=== PATIENT | female | born 1990 | race African-American/Black ===

== ENCOUNTER 2019-11-08 19:36 | Emergency (ER) | payer SELFPAY ==
[2019-11-08] MEDS ORDERED: Ondansetron ODT 4 MG TAB ONE (20:48)
== END 2019-11-08 20:59 | disposition home or self-care (01) ==
LOC: ERS 19:36
DX: R50.9 Fever, unspecified (principal); R11.0 Nausea; F41.9 Anxiety disorder, unspecified; F17.210 Nicotine dependence, cigarettes, uncomplicated
CPT/HCPCS: 87804; 99283; Q0162

== ENCOUNTER 2020-02-09 21:41 | Emergency (ER) | payer SELFPAY ==
[2020-02-09] MEDS ORDERED: Ondansetron ODT 4 MG TAB ONE (23:13)
[2020-02-09] MEDS ORDERED: Lidocaine 1% (PF) 30 ML VIAL ONE (23:13)
[2020-02-09] MEDS ORDERED: Sulfameth/Trimethoprim DS 800-160mg TAB ONE (23:13)
[2020-02-09] MEDS ORDERED: cefTRIAXone\\ROCEPHIN 1 GM VIAL ONE (23:13)
[2020-02-09] MEDS ORDERED: HYDROcodone/Acetaminophen 5/325 mg Tablet ONE (23:20)
== END 2020-02-09 23:46 | disposition home or self-care (01) ==
LOC: ERS 21:41
DX: L02.412 Cutaneous abscess of left axilla (principal); D50.9 Iron deficiency anemia, unspecified; F41.9 Anxiety disorder, unspecified; F17.210 Nicotine dependence, cigarettes, uncomplicated
CPT/HCPCS: 10060; 87070; 87205; 96372; J0696; J2001; Q0162